=== PATIENT | male | born 1975 | race African-American/Black ===

== ENCOUNTER 2018-09-30 13:50 | Day surgery (SDC) | payer OTHER ==
[~2018-09-30 13:50] MED LIST: CEFAZOLIN 2 GM/50 ML (PMX) 50 ML IVPB
[2018-09-30] MEDS: BUPIVACAINE 0.5% (SDV) 30 ML INJ (15:31)
[2018-09-30] MEDS: LIDOCAINE 1% (MPF) 30 ML INJ (15:31)
[2018-09-30] MEDS: LACTATED RINGER'S 1,000 ML IV* (16:00)
== END 2018-09-30 17:02 | disposition home or self-care (01) ==
LOC: SDS 13:50
DX: D48.1 Neoplasm of uncertain behavior of connective and other soft tissue (principal)
CPT/HCPCS: 26160; 88307